=== PATIENT | male | born 1975 | race Caucasian/White ===

== ENCOUNTER → 2021-06-09 | Outpatient (CLI) | payer BC ==
--- NOTE | 2021-06-09 10:11 | RAD ---
Site ID: [id number] EXAMINATION: XR RT TIBIA+FIBULA . HISTORY: 45 years Male Reason: LEG PAIN LATERAL SIDE, COMPARISON: None. FINDINGS: No fracture, dislocation or radiopaque foreign body. The joint spaces and articular surfaces appea r unremarkable. IMPRESSION: Unremarkable exam. Electronically signed by: Adams Linares MD (06/09/2021 10:09 AM) [id number]
== END ==
LOC: RAD 09:51
PROVIDERS: ATTEND Nurse Practitioner Family
DX: M79.604 Pain in right leg (principal)
CPT/HCPCS: 73590

== ENCOUNTER 2021-12-21 11:08 | Inpatient (IN) | payer BC ==
[~2021-12-21] VITALS: Ht 180.3 cm; Wt 90.8 kg
[2021-12-21] MEDS ORDERED: ASPIRIN CHEWABLE 81 MG TABLET. ONE (11:22)
--- NOTE | 2021-12-21 11:29 | PHYS DOC ---
Past History Past Medical History: GERD, Hypertension, Pancreatitis Past Surgical History Colon resection Smoking: Cigarettes, Greater than 1 pack/day Alcohol Use: Sober Drug Use: None General Adult EDM: Chief Complaint: CHEST PAIN HPI: HPI: Patient is a 46 year old male with a history of hypertension and pancreatitis presents with chest pain. The pain began this morning at 6:15 AM. He states the pain is substernal and radiates to his back. The pain is described as dull with intermittent spikes of sharp pain and radiates to his left arm. Pain in ED is 3 out of 10. Denies trauma. Denies leg swelling or calf tenderness. Denies fever or chills. Denies cough or shortness of breath. Review of Systems: Review of Systems: Constitutional: Denies fever or chills Eyes: Denies redness or eye pain HENT: Denies nasal congestion or sore throat Respiratory: Reports cough ; denies shortness of breath Cardiovascular: Reports chest pain; denies palpitations GI: Denies abdominal pain, nausea, or vomiting : Denies dysuria or hematuria Musculoskeletal: Reports back pain; denies joint pain or leg swelling Integument: Denies rash or skin lesions Neurologic: Denies headache, focal weakness or sensory changes Complete systems were reviewed and found to be within normal limits, except as documented in this note. Current Medications: Current Meds: Current Medications Medications (Trade) Dose Ordered Sig/Fabián Start Time Stop Time Status Last Admin Dose Admin Aspirin (Aspirin Chewable) 81 mg STK-MED ONCE 12/21/21 11:22 12/21/21 11:22 DC Aspirin (Irina Aspirin) 325 mg 1X ONCE 12/21/21 11:30 12/21/21 11:31 UNV Allergies: Allergies: Allergies Coded Allergies Type Severity Reaction Last Updated Verified No Known Drug Allergies 12/21/21 No Physical Exam: PE: Constitutional: Well developed, well nourished, appears worried HENT: Normocephalic, atraumatic Eyes: Conjunctiva normal, no discharge Neck: Normal range of motion, no tenderness, supple Lungs & Thorax: No respiratory distress, equal chest rise and fall Abdomen: Soft, no tenderness Skin: Warm, mildly diaphoretic, no erythema, no rash Extremities: Left arm pain and mild numbness Neurologic: Alert and oriented X 3, normal motor function, normal sensory function, no focal deficits noted Psychologic: Affect normal, judgment normal EKG: EKG: @1121 NSR at 97bpm, NO ST elevation, QRS 86ms, QT/QTc 330/423ms Radiology/Procedures: Radiology/Procedures: PROCEDURE: CHEST AP ONLY XR CHEST 1V History: Reason: chest pain / Spl. Instructions: / History: Comparison: None. Findings: No consolidation or pleural effusion. Normal heart size. No pneumothorax. Calcified right midlung pulmonary nodule, likely prior granulomatous disease. Impression: 1. No acute cardiopulmonary process. Electronically signed by: Hakan Ugalde DO (12/21/2021 12:01 PM) [id number] Heart Score: C/O Chest Pain: Yes HEART Score for Chest Pain: HEART Score for Chest Pain Response (Comments) Value History Moderately Suspicious 1 ECG Normal 0 Age >45 - < 65 1 Risk Factors 1 or 2 Risk Factors 1 Troponin < Normal Limit 0 Total 3 Risk Factors: Risk Factors: DM, Current or recent (<one month) smoker, HTN, HLP, family history of CAD, obesity. Risk Scores: Score 0 - 3: 2.5% MACE over next 6 weeks - Discharge Home Score 4 - 6: 20.3% MACE over next 6 weeks - Admit for Clinical Observation Score 7 - 10: 72.7% MACE over next 6 weeks - Early Invasive Strategies Course & Med Decision Making: Course & Med Decision Making Pertinent Labs and Imaging studies reviewed. (See chart for details) Patient presents for substernal chest pain that radiates to his back. He has a history of hypertension and pancreatitis. EKG stable. Labs reviewed and posted to chart. Initial troponin WNL. Lipase 1283. LFTs stable. CXR without acute process. HEART score 3. PERC negative. Patient requiring admission for further evaluation and treatment. Discussed with Dr. Betts (hospitalist) who is in agreement with admission. Discussed findings and plan with patient and spouse, who acknowledge understanding and agreement. Divya Disclaimer: Divya Disclaimer: This electronic medical record was generated, in whole or in part, using a voice recognition dictation system. Departure Departure: Impression: Primary Impression: Acute pancreatitis Qualified Codes: K85.90 - Acute pancreatitis without necrosis or infection, unspecified Additional Impression: Atypical chest pain Disposition: ADMITTED INPATIENT Admitting Physician: Mushtaq Betts Condition: STABLE Referrals: BHUPINDER,DOC M PA (PCP) PERC Rule for PE PERC Rule for PE Response (Comments) Value Age > 50: No 0 HR > 100: No 0 Sa02 on room air <95%: No 0 Unilateral leg swelling: No 0 Hemoptysis: No 0 Recent surgery or trauma: No 0 Prior PE or DVT: No 0 Hormone use: No 0 Total 0 LOVEFARNAZ DO Dec 21, 2021 11:29
[2021-12-21] MEDS ORDERED: ASPIRIN 325 MG TABLET PO ONE (11:30)
[2021-12-21] MEDS ORDERED: IV NORMAL SALINE 1,000ML 1,000 ML IV ONE (11:45)
[2021-12-21] MEDS ORDERED: FAMOTIDINE 20 MG/2 ML VIAL IVP ONE (11:45)
[2021-12-21 12:02] LABS: BASO # 0.2 x10^3/uL (0.0-0.2); BASO % 1 % (0-3); EOS # 0.2 x10^3/uL (0.0-0.7); EOS % 2 % (0-3); HEMATOCRIT 46.8 % (39.0-53.0); HEMOGLOBIN 15.8 g/dL (13.0-17.5); LYMPH # 2.3 x10^3/uL (1.0-4.8); LYMPH % 20 % (24-48); MEAN CORPUSCULAR HEMOGLOBIN 30 pg (25-35); MEAN CORPUSCULAR HGB CONC 34 g/dL (31-37); MEAN CORPUSCULAR VOLUME 89 fL (79-100); MONO # 0.6 x10^3/uL (0.0-1.1); MONO % 5 % (0-9); NEUT # 8.4 x10^3uL (1.8-7.7); NEUT % 72 % (31-73); PLATELET COUNT 304 x10^3/uL (140-400); RED BLOOD COUNT 5.28 x10^6/uL (4.30-5.70); RED CELL DISTRIBUTION WIDTH 13.8 % (11.5-14.5); WHITE BLOOD COUNT 11.7 x10^3/uL (4.0-11.0)
--- NOTE | 2021-12-21 12:03 | RAD ---
XR CHEST 1V History: Reason: chest pain / Spl. Instructions: / History: Comparison: None. Findings: No consolidation or pleural effusion. Normal heart size. No pneumothorax. Calcified right midlung pul monary nodule, likely prior granulomatous disease. Impression: 1. No acute cardiopulmonary process. Electronically signed by: Hakan Ugalde DO (12/21/2021 12:01 PM) [id number]
[2021-12-21 12:12] LABS: CALCIUM 9.6 mg/dL (8.5-10.1); CREATININE 1.2 mg/dL (0.7-1.3); GFR 65.5; POTASSIUM 4.7 mmol/L (3.5-5.1)
[2021-12-21 12:28] LABS: ALBUMIN 4.4 g/dL (3.4-5.0); ALBUMIN/GLOBULIN RATIO 1.3 (1.0-1.7); MAGNESIUM 2.2 mg/dL (1.8-2.4); TOTAL BILIRUBIN 0.4 mg/dL (0.2-1.0); TOTAL PROTEIN 7.9 g/dL (6.4-8.2)
[2021-12-21 13:03] LABS: CLARITY,URINE CLEAR; COLOR,URINE YELLOW; GLUCOSE,URINE NEG (NEG)
[2021-12-21 13:04] LABS: BACTERIA,URINE 0 /HPF (0-FEW); NITRITE,URINE NEG (NEG); RBC,URINE 0 /HPF (0-2); UROBILINOGEN,URINE 0.2 mg/dL (0.2 mg/dL); WBC,URINE 0 /HPF (0-4)
[2021-12-21] MEDS: ONDANSETRON PF 4 MG/2 ML VIAL. IVP PRN (14:32)
[2021-12-21 17:35] VITALS: BP 138/87
--- NOTE | 2021-12-21 20:18 | EKG ---
[facility] [address] [place] [address] Test Date: 2021-12-21 Test Time: 11:21:36 Pat Name: YUNG CABA Department: Room: 117 A Gender: M [employer] Supervisor: : 1975 Requested By: FARNAZ LOVE Order Number: [id number] Reading MD: Thony Evans Measurements Intervals [place] Rate: 97 P: 14 WA: 180 QRS: 13 QRSD: 86 T: 18 QT: 330 QTc: 423 Interpretive Statements SINUS RHYTHM LEFT ATRIAL ABNORMALITY Electronically Signed On 12-25-2021 13:50:30 CDT by Thony Evans
[2021-12-21] MEDS: IV DEXTROSE 5 %-0.45 % NACL 1,000 ML IV SCH (22:16)
[2021-12-21] MEDS: MORPHINE SULFATE 4 MG/ML DISP.SYRIN. IV PRN (22:34)
[2021-12-21 23:06] VITALS: BP 115/74
[2021-12-22 05:52] VITALS: BP 106/70
[2021-12-22] MEDS: ONDANSETRON PF 4 MG/2 ML VIAL. IVP PRN ×3 (10:27→21:16)
[2021-12-22] MEDS: MORPHINE SULFATE 4 MG/ML DISP.SYRIN. IV PRN ×3 (10:28→21:16)
[2021-12-22] MEDS: IV DEXTROSE 5 %-0.45 % NACL 1,000 ML IV SCH (10:29)
[2021-12-22 11:33] VITALS: BP 113/69
[2021-12-22] MEDS ORDERED: NICOTINE 21MG PATCH. TD PRN (12:15)
[2021-12-22 15:13] LABS: HEMATOCRIT 45.1 % (39.0-53.0); RED BLOOD COUNT 5.04 x10^6/uL (4.30-5.70); WHITE BLOOD COUNT 8.9 x10^3/uL (4.0-11.0)
[2021-12-22] MEDS ORDERED: PANTOPRAZOLE IV 40 MG VIAL. IVP ONE (15:15)
[2021-12-22 15:18] LABS: CALCIUM 8.8 mg/dL (8.5-10.1); GFR 80.8; POTASSIUM 3.9 mmol/L (3.5-5.1)
[2021-12-22 15:26] LABS: ALBUMIN 3.7 g/dL (3.4-5.0); ALBUMIN/GLOBULIN RATIO 1.1 (1.0-1.7); TOTAL BILIRUBIN 0.6 mg/dL (0.2-1.0); TOTAL PROTEIN 7.2 g/dL (6.4-8.2)
[2021-12-22 15:55] VITALS: BP 117/78
--- NOTE | 2021-12-22 17:08 | HP ---
DATE OF SERVICE: 12/22/2021 ADMIT DATE: 12/21/2021 HISTORY OF PRESENT ILLNESS: The patient is a 46-year-old male patient who presented to the Emergency Room complaining of chest pain that started around 6:15 in the morning. He stated the pain is substernal, radiates through and through to the back. He described it as a dull ache with intermittent spikes of sharp pain that radiates to his left arm, pain was rated at about 3/10. He denied any trauma. Denied any shortness of breath or diaphoresis. Did complain of nausea and vomiting. The patient was extensively investigated and has had lab work and imaging studies. He had an EKG, which showed that he was in sinus rhythm at a rate of 97 beats per minute with no ST elevation. His QRS duration was 86 milliseconds and corrected QT interval was 423 milliseconds. His chest x-ray was unremarkable and he has had also his first set of troponin I high sensitivity was only 5; however, his lipase was 1283 and the patient was admitted with acute pancreatitis. He was started on IV fluid, pain medication and antiemetic and was admitted for further evaluation and treatment. PAST MEDICAL HISTORY: Significant for previous acute pancreatitis, was drug-induced and was complicated by multiorgan failure including acute heart failure, liver failure and acute kidney injury requiring hemodialysis. He has also history of hypertension, gastroesophageal reflux disease. PAST SURGICAL HISTORY: Significant for partial colectomy for a mass. He also had an EGD and colonoscopy before. ALLERGIES: He has no known drug allergies. MEDICATIONS: He is on omeprazole as well as an antihypertensive medication that he does not know the dose of both of them. FAMILY HISTORY: He has one older brother, still alive and healthy. His father at age 28 as he committed suicide. His mother is still alive at the age of 70 and she is healthy. SOCIAL HISTORY: He is engaged. He has a son and a daughter. He smokes 1 pack per day. He quit drinking about 2 years ago. He does not use any drugs. He is a technician semiconductor development. PHYSICAL EXAMINATION: GENERAL: On arrival to the Emergency Room, the patient looked well and was clearly in no apparent respiratory distress. No pallor, jaundice, cyanosis. No lymphadenopathy, no thyromegaly, no jugular venous distention. No limb edema. VITAL SIGNS: His heart rate was 75, blood pressure was 115/74, temperature was 97.5, respiratory rate 20, and oxygen saturation was 95%. HEAD, EYES, EARS, NOSE AND THROAT: Normocephalic, atraumatic. NECK: Supple. HEART: Showed normal first and second heart sounds. No gallop, rub or murmur. CHEST: Clear to auscultation, no crepitation or rhonchi. ABDOMEN: Distended with tenderness mostly in the epigastric area. There is no guarding or rigidity. No organomegaly. All hernial orifice intact. Bowel sounds normal. NEUROLOGIC: He was awake, alert, responding appropriately. All cranial nerves intact. He moves extremities without difficulty. LABORATORY WORK: On admission showed a white cell count of 11.7, hemoglobin 15.8, hematocrit 46.8, MCV 89 and platelet count 304,000 with a manual differential shows 72% polymorphs, 20% lymphocytes and 5% monocytes. Serum sodium was 142, potassium 4.7, chloride 106, bicarbonate 25, anion gap of 11, BUN 17, creatinine 1.2. Estimated GFR was 65 mL per minute. His glucose 111, calcium was 9.6. His magnesium was 2.2. Total bilirubin, AST, ALT, alkaline phosphatase were normal. His CK was 183. His first set of cardiac enzyme, troponin I high sensitivity was only 5. His beta natriuretic peptide was 28. Total protein was 7.9, albumin 4.4, serum lipase was 1283. His urinalysis showed the urine was yellow, clear with a pH of 7.5, specific gravity of 1.015. Urine was negative for protein, glucose, ketones, negative for blood, nitrite and leukocyte esterase. There are no rbc's, no wbc's and no bacteria. His toxic screen showed blood alcohol level to be less than 10. His coronavirus by rapid antigen testing was negative. Has had a chest x-ray, which showed no acute cardiopulmonary process. ASSESSMENT AND PLAN: The patient was admitted with acute pancreatitis that is not really related to alcohol according to him. He was kept n.p.o., started on IV fluid, IV pain medication and antiemetic. I will also start him on Protonix. We will monitor his lab work on a daily basis and his pain is improving and lipase is down, we can start him on a clear liquid diet. BENSON/JK DR: MAYTE/keysha TID: [id number]
[2021-12-22 20:02] VITALS: BP 119/79
[2021-12-23] MEDS: IV DEXTROSE 5 %-0.45 % NACL 1,000 ML IV SCH (02:21)
[2021-12-23] MEDS: ONDANSETRON PF 4 MG/2 ML VIAL. IVP PRN (02:26)
[2021-12-23] MEDS: MORPHINE SULFATE 4 MG/ML DISP.SYRIN. IV PRN (02:26)
[2021-12-23 05:41] VITALS: BP 99/63
[2021-12-23 06:40] LABS: ALBUMIN 3.4 g/dL (3.4-5.0); ALBUMIN/GLOBULIN RATIO 1.2 (1.0-1.7); CALCIUM 8.6 mg/dL (8.5-10.1); CREATININE 1.2 mg/dL (0.7-1.3); GFR 65.5; POTASSIUM 4.1 mmol/L (3.5-5.1); TOTAL BILIRUBIN 0.6 mg/dL (0.2-1.0); TOTAL PROTEIN 6.3 g/dL (6.4-8.2)
[2021-12-23] MEDS ORDERED: PANTOPRAZOLE IV 40 MG VIAL. IVP SCH (07:30)
--- NOTE | 2021-12-23 14:27 | PN ---
DATE: 12/22/2021 SUBJECTIVE: The patient is resting, slightly propped up in bed, in no apparent distress. He continued to complain of epigastric pain that he rated about 3/10 in severity. He did complain of nausea, but no vomiting. PHYSICAL EXAMINATION: GENERAL: When I examined him, he looked well and was clearly in no apparent respiratory distress. No pallor, jaundice, cyanosis. No lymphadenopathy, no thyromegaly. No jugular venous distention. No limb edema. VITAL SIGNS: His heart rate was 76, blood pressure was 117/78, temperature 98.1, respiratory rate 20, and oxygen saturation was 96% on room air. The rest of clinical exam stable. His intake and output are incompletely recorded. LABORATORY DATA: Showed a white cell count of 8.9, hemoglobin 15, hematocrit 45, MCV 89 and platelet count 253,000. His chemistry showed a serum sodium of 141, potassium 3.9, chloride 107, bicarbonate 26, anion gap of 8, BUN 15, creatinine 1, estimated GFR was 82 mL per minute. His glucose was 97, calcium was 8.8. Total bilirubin, AST, ALT, alkaline phosphatase were normal. Total protein was 7.2, albumin was 3.7. His lipase is down to 608. PLAN: Can be started on a clear liquid diet as tolerated and advance his diet tomorrow. If his lipase has normalized, he can be discharged tomorrow. HIRA/LANDY DR: Jose TID: [id number]
--- NOTE | 2021-12-23 20:15 | DS ---
DATE OF DISCHARGE: 12/23/2021 ATTENDING PHYSICIAN: Dr. Betts, Dr. Glass. FINAL DISCHARGE DIAGNOSES: 1. Atypical chest pain, coronary ischemia ruled out. 2. Gastroesophageal reflux disease. 3. End-stage gastritis. 4. Hypertension. 5. Chronic alcoholism. 6. Continued tobacco use. 7. History of pancreatitis. HISTORY AND PHYSICAL: The patient, age 46, was admitted to the ED with atypical chest pain. He has been using large amounts of ibuprofen for chronic back pain. He smokes a pack to pack and half cigarettes a day. He drinks alcohol, he has been sober accordingly. He was admitted for serial enzymes and further evaluation. He also drinks a lot of caffeine. PHYSICAL EXAMINATION: Please see the dictated note. PERTINENT LABORATORY AND X-RAY STUDIES: Admission hemoglobin was 15.8 grams, white count 8900. Electrolytes within normal range. The cardiac enzymes were negative for coronary ischemia. Ethyl alcohol level was normal. Urinalysis was clear. Serology negative for coronavirus. COURSE IN THE HOSPITAL: The patient was admitted. He was placed on the monitor, blood pressure was adequate. Diet was advanced. Pain and nausea controlled. When I saw him, his vital signs were stable. I had strong encouragement for him to avoid further alcohol use to quit smoking and stop using nonsteroidal anti-inflammatory drugs, specifically ibuprofen. Whether or not he will follow this advice, he remains to be seen. He was discharged then in stable condition with explicit drug and followup care. He will follow up with LEONEL Huffman. Total discharge time is 39 minutes. ONEAL/MARCELA DR: Zi TID: [id number] CC: LEONEL BURKETT
== END 2021-12-23 10:38 | disposition home or self-care (01) | DRG 313 ==
LOC: ER 11:08 → ER HOLD 13:46 → 1 SOUTH 17:19
PROVIDERS: ADMIT Internal Medicine; ATTEND Internal Medicine
DX: R07.89 Other chest pain (principal); K85.90 Acute pancreatitis without necrosis or infection, unspecified; Z20.822 Contact with and (suspected) exposure to COVID-19; F10.20 Alcohol dependence, uncomplicated; F17.210 Nicotine dependence, cigarettes, uncomplicated; G89.29 Other chronic pain; I11.0 Hypertensive heart disease with heart failure; I50.9 Heart failure, unspecified; K21.9 Gastro-esophageal reflux disease without esophagitis; K29.70 Gastritis, unspecified, without bleeding; Y90.0 Blood alcohol level of less than 20 mg/100 ml
CPT/HCPCS: 36415; 71045; 80053; 81001; 82553; 83690; 83735; 83880; 84484; 85025; 85027; 87426; 93005; 96361; 96374; 96375; C9113; G0480; J2270; J2405; J3010; J3490; U0003; 99285-25; J7030